=== PATIENT | male | born 1980 | race Hispanic/Latino ===

== ENCOUNTER 2020-02-27 08:11 | Emergency (ER) | payer SELFPAY ==
[2020-02-27 08:19] VITALS: BP 141/80
== END 2020-02-27 10:29 | disposition left against medical advice (07) ==
LOC: ED 08:11
DX: R22.9 Localized swelling, mass and lump, unspecified (principal); Z53.21 Procedure and treatment not carried out due to patient leaving prior to being seen by health care provider